=== PATIENT | male | born 1990 | race Caucasian/White ===

== ENCOUNTER → 2016-09-24 | Outpatient (CLI) | payer OTHER ==
--- NOTE | 2016-09-26 21:11 | SP ---
DATE OF PROCEDURE: 09/24/2016 INDICATION: A 25-year-old gentleman with history of seizures since age 5, last episode about a marta h ago, currently on Keppra. DESCRIPTION OF PROCEDURE: Routine outpatient study was recorded digitally. Lnujg-[id number]-iylxu and scal p-to-ear montages were recorded and reviewed. All impedances were measured and recorded. Cap elect rodes were placed in accordance with International 10-20 system of electrode placement. FINDINGS: Symmetrically distributed background activity of low amplitude and frequency of about 12 cycles per second was seen in the awake state. This activity intermixes even with faster beta range , but smaller amplitude activity. Photic stimulation produces no definite driving. Hyperventilatio n elicits no epileptiform transients. Some slowing of background was noted. When the patient gets d rowsy and falls asleep, background rhythm gets slightly slower, 4-6 cycles per second. Also, occasi onal vertex waves were observed. No signs of ongoing electrographic seizures. No lateralized slowi ng. No epileptiform activity seen. IMPRESSION: Normal study. Please correlate clinically. Dictated By: CINDI RAMEY/MARTI Conf#: [id number] DID#: [id number]
== END | disposition home or self-care (01) ==
LOC: EEG 09:33
PROVIDERS: ATTEND Psychiatry & Neurology Neurology
DX: R56.9 Unspecified convulsions (principal)
CPT/HCPCS: 95819